=== PATIENT | female | born 1975 | race Caucasian/White ===

== ENCOUNTER 2016-12-26 10:33 | Observation (INO) | payer BC ==
--- NOTE | ~2016-12-26 | DS ---
Discharge Summary [facility] [address] [place]. [address] NAME: PIPPA MASON : 71 STATUS : DIS Ankur PAT#: [id number] AGE: 41 ADM/REG DATE : 12/26/16 MR#: [id number] REPORT SERV DATE: 12/28/16 DICTATED BY: JR. KAY WILLIAM JOHN DATE: 12/27/16 REPORT STATUS : Draft TRANSCRIBED BY: SHADE DATE: 12/27/16 ADMISSION DATE: 12/26/2016 DISCHARGE DATE: 12/27/2016 DISCHARGE DIAGNOSES: Include left hand cellulitis secondary to cat bite. OPERATIONS/PROCEDURES AND TREATMENTS: Include blood cultures x2, which were no growth to date. DISCHARGE MEDICATIONS: Include: 1. Maxalt 10 mg orally daily as needed. 2. Multivitamin one tablet orally daily. 3. Augmentin 875 mg orally twice a day for 10 days-the patient already has this supply. 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 The patient was trying to give her cat a bath and got bit through and through. She cleansed the wound with Hibiclens, it started to become sore and red, and the patient was given a supply of Augmentin. She took a single dose, then developed extended erythema with lymphangitic spread. She was evaluated in the emergency room, saw Dr. Rigo Owen in the outpatient setting. He recommended IV Unasyn. For initial exam and presenting data, please see Dr. Odonnell' dictated history and physical. The patient was admitted to the Clinical Decision Unit. She was started on Augmentin. The lymphangitic erythema as well as erythema and warmth of the hand had totally resolved by hospital day #2. The patient was seen by General Surgery, who felt there was no indication for debridement or drainage at this time. The patient's white blood count was normal. She was afebrile. She felt stable for discharge home. She will be discharged home to complete her 10-day supply of Augmentin. DISCHARGE DIET: Regular. ACTIVITY: As tolerated. For discharge exam and laboratory, please see daily progress note. CURLY/SHADE Olu Kay Jr, MD / [id number] CC: Discharge Summary [place] [address] [place]. [address] NAME: PIPPA MASON : 71 STATUS : DIS Ankur PAT#: [id number] AGE: 41 ADM/REG DATE : 12/26/16 MR#: [id number] REPORT SERV DATE: 12/28/16 DICTATED BY: JR. KAY WILLIAM JOHN DATE: 12/27/16 REPORT STATUS : Draft TRANSCRIBED BY: MODLukas DATE: 12/27/16 Olu Kay Jr, MD
--- NOTE | ~2016-12-26 | HP ---
History And Physical [place] [id number] [facility] [place]. [address] NAME: PIPPA MASON : 71 STATUS : ADM Ankur PAT#: [id number] AGE: 41 ADM/REG DATE : 12/26/16 MR#: [id number] REPORT SERV DATE: 12/26/16 DICTATED BY: ROSALIE ODONNELL DATE: 12/26/16 REPORT STATUS : Draft TRANSCRIBED BY: SHADE DATE: 12/26/16 DATE OF ADMISSION: 12/26/2016 CHIEF COMPLAINT: Left hand cat bite. HISTORY OF PRESENT ILLNESS: The patient is a very pleasant 41-year-old, otherwise healthy, white female. She states her cat bit her while she was trying to bathe it yesterday. She cleaned it with Hibiclens and watched the area closely. She works in the emergency room as a tech. The ER physician here was watching it. She noticed that it became progressively more red and swollen around the lateral aspect of her hand, then it started streaking up her arm. She was seen by Dr. Rigo Owen today in the outpatient setting and he recommended IV Unasyn for a few days and watch her. IV Unasyn could not be arranged in the outpatient setting, so she was admitted for observation. She has had no documented fevers, and she is not in significant pain. PAST MEDICAL HISTORY: Migraines. FAMILY HISTORY: Her dad had Parkinson's and CAD. Her mom had CAD. SOCIAL HISTORY: She is a nondrinker, nonsmoker. She has 2 kids. 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 ALLERGIES: NO KNOWN DRUG ALLERGIES. PAST SURGICAL HISTORY: She has had a hysterectomy, a bladder sling, cholecystectomy, breast reduction, and ORIF of the right foot. HOME MEDICATIONS: Reviewed and attached. REVIEW OF SYSTEMS: Full 10-point review of systems obtained. Pertinent positives are already mentioned in the HPI. PHYSICAL EXAMINATION: VITAL SIGNS: Blood pressure 156/85, sats 100%, temperature 98.6, pulse 83, and respirations 16. GENERAL: Well-developed white female, in no apparent distress. HEENT: Normocephalic, atraumatic. HEART: Regular rate and rhythm. LUNGS: Grossly clear. EXTREMITIES: Left arm was examined hand, she has some erythema and swelling on her lateral aspect of her hand along with streaking of her forearm which is red. LABORATORY AND X-RAY DATA: CBC: H and H are 12 and 36, white count 7.8, and platelets 376. Lactate is 1.2. Sodium 137, potassium 3.6, chloride 103, CO2 is 30, BUN and creatinine 9 and 0.76. LFTs are normal. History And Physical [address] [address] NAME: PIPPA MASON : 71 STATUS : ADM Ankur PAT#: [id number] AGE: 41 ADM/REG DATE : 12/26/16 MR#: [id number] REPORT SERV DATE: 12/26/16 DICTATED BY: ROSALIE ODONNELL DATE: 12/26/16 REPORT STATUS : Draft TRANSCRIBED BY: SHADE DATE: 12/26/16 ASSESSMENT/PLAN: 1. Left-sided hand cellulitis with cat bite, certainly at risk for deeper infection. We will place her on IV Unasyn 3 g IV q.8h. We will follow her clinical exam. I have marked her areas of redness with a pen. Dr. Owen is going to see her on rounds tomorrow. I will keep her n.p.o. after midnight just in case he decides she needs to go to the operating room. 2. Deep venous thrombosis prophylaxis. Subcutaneous heparin. 3. Disposition. Pending above. [place]/SHADE Rosalie Odonnell M.D. / [id number] CC: Olu Kay Jr, MD
[2016-12-26 09:16] LABS: BASOPHILS 0.5 %; BASOPHILS ABSOLUTE 0.04 10/3/uL (0.0-0.16); EOSINOPHILS 0.8 %; EOSINOPHILS ABSOLUTE 0.06 10/3/uL (0.0-0.53); ER CBC TAT 0 Hrs 07 Mins; HEMATOCRIT 36.9 % (36.0-48.0); HEMOGLOBIN 12.4 g/dL (12.0-16.0); IMMATURE GRANULOCYTES 0.3 %; IMMATURE GRANULOCYTES ABSOLUTE 0.02 10/3/uL (0.0-0.11); LYMPHOCYTES 34.7 %; MEAN CORPUS HGB CONC 33.6 g/dL (32.0-36.0); MEAN CORPUSCULAR HEMOGLOB 30.6 pg (26.0-34.0); MEAN CORPUSCULAR VOLUME 91.1 fL (80-100); MEAN PLATELET VOLUME 10.7 fL (9.2-13.0); MONOCYTES 7.6 %; MONOCYTES ABSOLUTE 0.59 10/3/uL (0.21-1.20); NEUTROPHILS 56.1 %; NEUTROPHILS ABSOLUTE 4.36 10/3/uL (2.02-8.40); PLATELET COUNT 376 10/3/uL (150-400); RBC DISTRIBUTION WIDTH 13.6 % (12.0-16.0); RED CELL COUNT 4.05 10/6/uL (4.0-5.6); WHITE BLOOD CELLS 7.8 10/3/uL (4.5-10.5)
[2016-12-26 09:17] LABS: MANUAL DIFF NO %
[2016-12-26 09:37] LABS: LACTATE 1.2 MMOL/L (0.3-2.4)
[2016-12-26 09:43] LABS: A/G RATIO 0.9 (0.7-1.9); ALBUMIN 3.5 G/DL (3.5-5.0); ALKALINE PHOSPHATASE 59 U/L (45-117); BUN (BLOOD UREA NITROGEN) 9 MG/DL (6-23); CALCIUM, SERUM 8.4 MG/DL (8.5-10.4); CHLORIDE, SERUM 103 MMOL/L (96-112); CO2 (CARBON DIOXIDE) 30 MMOL/L (24-34); CREATININE 0.76 MG/DL (0.55-1.02); GFR AFRICAN AMERICAN 111 ML/MIN (>=60); GFR NON AFRICAN AMERICAN 96 ML/MIN (>=60); GLOBULIN 4.1 G/DL (2.5-4.1); GLUCOSE, SERUM 89 MG/DL (60-99); POTASSIUM, SERUM 3.6 MMOL/L (3.5-5.3); SGOT(AST) 36 U/L (5-40); SGPT(ALT) 61 U/L (5-65); SODIUM, SERUM 137 MMOL/L (135-148); TOTAL BILIRUBIN 0.3 MG/DL (0-1.2); TOTAL PROTEIN 7.6 G/DL (6.0-8.5)
[~2016-12-26 10:33] MED LIST: *DENIES; AUG875 PO; EXCEDRIN MIGRA1 EAC1 PO; MAXALT10 MG PO; MULTIVIT/MIN PO; PEP20 PO; PERCOCET1 TA2 PO
[2016-12-26 12:48] LABS: INTERNATIONAL NORMAL RATI 1.1 UNITS (-); PARTIAL THROMBO TIME 29.5 SEC (22.5-37.2); PROTIME (NOT ORD) 14.4 SEC (12.0-14.5)
[2016-12-27 05:12] LABS: BASOPHILS 0.3 %; BASOPHILS ABSOLUTE 0.02 10/3/uL (0.0-0.16); EOSINOPHILS 1.8 %; EOSINOPHILS ABSOLUTE 0.12 10/3/uL (0.0-0.53); HEMOGLOBIN 11.5 g/dL (12.0-16.0); IMMATURE GRANULOCYTES 0.2 %; IMMATURE GRANULOCYTES ABSOLUTE 0.01 10/3/uL (0.0-0.11); LYMPHOCYTES 36.7 %; LYMPHOCYTES ABSOLUTE 2.43 10/3/uL (0.67-4.30); MEAN CORPUS HGB CONC 32.9 g/dL (32.0-36.0); MEAN CORPUSCULAR VOLUME 91.4 fL (80-100); MEAN PLATELET VOLUME 10.9 fL (9.2-13.0); MONOCYTES 6.5 %; MONOCYTES ABSOLUTE 0.43 10/3/uL (0.21-1.20); NEUTROPHILS 54.5 %; NEUTROPHILS ABSOLUTE 3.61 10/3/uL (2.02-8.40); PLATELET COUNT 351 10/3/uL (150-400); RBC DISTRIBUTION WIDTH 13.6 % (12.0-16.0); RED CELL COUNT 3.83 10/6/uL (4.0-5.6); WHITE BLOOD CELLS 6.6 10/3/uL (4.5-10.5)
[2016-12-27 05:15] LABS: MANUAL DIFF NO %
== END 2016-12-27 11:40 | disposition home or self-care (01) ==
LOC: ER 10:33 → CDU1 10:47
PROVIDERS: Hospitalist; Internal Medicine
DX: L03.114 Cellulitis of left upper limb (principal); S61.452A Open bite of left hand, initial encounter; G43.909 Migraine, unspecified, not intractable, without status migrainosus; Z82.49 Family history of ischemic heart disease and other diseases of the circulatory system; Z90.710 Acquired absence of both cervix and uterus; Z90.49 Acquired absence of other specified parts of digestive tract; Z98.890 Other specified postprocedural states; W55.01XA Bitten by cat, initial encounter
CPT/HCPCS: 80053; 83605; 85025; 85610; 85730; 87040; 96365; 96372; 96376; 99284; A9270-GY; G0378; J0295